=== PATIENT | male | born 1985 | race Caucasian/White ===

== ENCOUNTER 2017-04-19 06:21 | Day surgery (SDC) | payer OTHER ==
[2017-04-19] VITALS (8 sets, daily range): BP systolic 101–151; BP diastolic 66–86; PULSE 58–94; TEMP 97.3–98.5
[~2017-04-19] VITALS: Ht 182.9 cm; Wt 179.5 kg
[2017-04-19] MEDS ORDERED: PROAIR HFA0.09 MG/AC IH (07:55)
[2017-04-19] MEDS ORDERED: NORCO 325 MG-51 TAB PO (07:55)
[2017-04-19] MEDS ORDERED: ROXICODONE 55 MG/TAB PO (12:38)
[2017-04-19] MEDS ORDERED: NORCO 325 MG-7.1 TAB PO (12:38)
== END 2017-04-19 17:24 | disposition home or self-care (01) ==
LOC: SDCO 06:21
DX: S82.842A Displaced bimalleolar fracture of left lower leg, initial encounter for closed fracture (principal); J45.909 Unspecified asthma, uncomplicated; I10 Essential (primary) hypertension; G89.18 Other acute postprocedural pain; G47.33 Obstructive sleep apnea (adult) (pediatric); Z83.3 Family history of diabetes mellitus; Z82.49 Family history of ischemic heart disease and other diseases of the circulatory system; Z82.62 Family history of osteoporosis
CPT/HCPCS: C1713; J0330; J0690; J1885; J2250; J2704; J7120